=== PATIENT | female | born 1955 | race Caucasian/White ===

== ENCOUNTER → 2017-03-14 | Outpatient (CLI) | payer BC ==
[~2017-03-14] MED LIST: CLARITIN 1010 MG/TAB PO; COLACE 100100 MG/CAP PO; COUMADIN 2MG2 MG/TAB PO; COUMADIN 3MG3 MG/TAB PO; FLEXERIL 1010 MG/TAB PO; FOLIC ACID 40400 MCG PO; IRON325 MG PO; LORTAB 5/500 501 TAB PO; NORCO 325 MG-7.1 TAB PO; ROXICODONE 55 MG/TAB PO; VITAMIN C500 MG PO; VITAMINC1000TA
== END ==
LOC: MC.RAD 14:32
DX: Z12.31 Encounter for screening mammogram for malignant neoplasm of breast (principal)

== ENCOUNTER 2017-12-02 13:32 | Outpatient (RCR) | payer BC | END 2018-03-02 | disposition home or self-care (01) | LOC: MKS.ESL.PT | DX: H81.13 Benign paroxysmal vertigo, bilateral (principal) ==

== ENCOUNTER → 2018-03-06 | Outpatient (CLI) | payer BC | LOC: COL.RAD 07:17 | DX: R10.11 Right upper quadrant pain (principal) ==

== ENCOUNTER → 2018-03-13 | Outpatient (CLI) | payer BC | LOC: COL.RAD 07:48 | DX: K76.89 Other specified diseases of liver (principal) | CPT/HCPCS: Q9967 ==

== ENCOUNTER → 2018-03-18 | Outpatient (CLI) | payer BC | LOC: MC.RAD 14:20 | DX: Z12.31 Encounter for screening mammogram for malignant neoplasm of breast (principal) ==

== ENCOUNTER → 2018-03-19 | Outpatient (CLI) | payer BC | LOC: COL.RAD 06:55 | DX: R10.11 Right upper quadrant pain (principal) | CPT/HCPCS: A9537 ==

== ENCOUNTER 2018-09-21 19:59 | Emergency (ER) | payer BC ==
[~2018-09-21] VITALS: Ht 162.6 cm; Wt 68.2 kg
[2018-09-21 20:05] VITALS: TEMP 98.4
[2018-09-21 21:12] LABS: COLLECTION METHOD CLEAN CATCH
[2018-09-21 21:16] LABS: BASO % 0.5 % (0.0-2.0); EOS # 0.2 (0.0-0.7); EOS % 2.1 % (0-4.0); GRAN # 5.2 (1.4-6.5); GRAN % 68.1 % (42.2-75.2); HEMATOCRIT 40.8 % (37.0-47.0); HEMOGLOBIN 13.3 g/dl (12.5-16.0); LYMPH # 1.4 (1.2-3.4); LYMPH % 18.1 % (20.0-51.0); MEAN CELL VOLUME 95 fl (80.0-100.0); MEAN CORPUSCULAR HEMOGLOBIN 31 pg (27.0-31.0); MEAN CORPUSCULAR HGB CONC 33 g/dl (33.0-37.0); MEAN PLATELET VOLUME 11.7 fl (7.4-10.4); MONO # 0.8 (0.1-0.6); MONO % 10.8 % (1.7-9.3); PLATELET COUNT 161 K/mm3 (130-400); RED BLOOD COUNT 4.29 M/mm3 (4.10-5.30); REDCELL DISTRIBUTION WIDTH-CV 12.6 % (11.5-14.5)
[2018-09-21 21:17] LABS: PH 7 (5-8); SQUAMOUS EPITHELIAL 0-2 /hpf; URINE APPEARANCE Clear; URINE BACTERIA None Seen /hpf; URINE BILIRUBIN Negative (NEGATIVE); URINE BLOOD Negative (NEGATIVE); URINE COLOR Colorless; URINE GLUCOSE Negative (NEGATIVE); URINE KETONE Negative (NEGATIVE); URINE LEUKOCYTE ESTERASE Negative (NEGATIVE); URINE NITRATE Negative (NEGATIVE); URINE PROTEIN(semi-quant) Negative (NEGATIVE); URINE RBC 0-2 /hpf; URINE UROBILINOGEN Negative (NEGATIVE)
[2018-09-21 21:26] LABS: ALANINE AMINOTRANSFERASE 12 U/L (9-52); ALBUMIN 3.8 gm/dL (3.5-5.0); ALKALINE PHOSPHATASE 66 U/L (50-136); ANION GAP 6 mmol/L (7-16); AST,SGOT 32 U/L (15-37); BILIRUBIN,TOTAL 0.4 mg/dL (0.0-1.0); BLOOD UREA NITROGEN 14 mg/dL (7-17); CALCIUM 9.1 mg/dL (8.4-10.2); CARBON DIOXIDE 32 mmol/L (22-30); CHLORIDE 101 mmol/L (98-107); CREATININE, serum 0.76 mg/dL (0.52-1.25); GLUCOSE 87 mg/dL (74-106); LIPASE 82 U/L (23-300); POTASSIUM 3.9 mmol/L (3.4-5.0); SODIUM 139 mmol/L (137-145); TOTAL PROTEIN 7.1 gm/dL (6.4-8.2)
[2018-09-21 21:29] LABS: C-REACTIVE PROTEIN < 0.5 mg/dL (0.0-0.9)
[2018-09-22 00:12] VITALS: BP 137/83; PULSE 66
[2018-09-22] MEDS ORDERED: NORCO 325 MG-51 TAB PO (22:45)
== END 2018-09-22 00:12 | disposition home or self-care (01) ==
LOC: COL.ER 19:59
PROVIDERS: Physician Assistant
DX: K59.00 Constipation, unspecified (principal); R16.0 Hepatomegaly, not elsewhere classified; Z90.710 Acquired absence of both cervix and uterus; Z98.890 Other specified postprocedural states; Z88.1 Allergy status to other antibiotic agents
CPT/HCPCS: Q9967

== ENCOUNTER 2018-09-22 21:22 | Emergency (ER) | payer BC ==
[~2018-09-22] VITALS: Ht 162.6 cm; Wt 68.2 kg
[2018-09-22 21:27] VITALS: TEMP 97.7
[2018-09-22 22:37] LABS: BASO % 0.8 % (0.0-2.0); EOS # 0.1 (0.0-0.7); EOS % 1.9 % (0-4.0); GRAN # 3.4 (1.4-6.5); GRAN % 64.8 % (42.2-75.2); HEMATOCRIT 37.9 % (37.0-47.0); HEMOGLOBIN 12.7 g/dl (12.5-16.0); LYMPH % 19.6 % (20.0-51.0); MEAN CELL VOLUME 95 fl (80.0-100.0); MEAN CORPUSCULAR HEMOGLOBIN 32 pg (27.0-31.0); MEAN CORPUSCULAR HGB CONC 34 g/dl (33.0-37.0); MEAN PLATELET VOLUME 11.2 fl (7.4-10.4); MONO # 0.7 (0.1-0.6); MONO % 12.5 % (1.7-9.3); PLATELET COUNT 157 K/mm3 (130-400); RED BLOOD COUNT 4.01 M/mm3 (4.10-5.30); REDCELL DISTRIBUTION WIDTH-CV 12.6 % (11.5-14.5)
[2018-09-22] MEDS ORDERED: NORCO 325 MG-51 TAB PO (22:45)
[2018-09-22 23:10] VITALS: BP 136/81; PULSE 67
== END 2018-09-22 23:10 | disposition home or self-care (01) ==
LOC: COL.ER 21:22
PROVIDERS: Family Medicine
DX: R10.31 Right lower quadrant pain (principal); R10.2 Pelvic and perineal pain; Z90.710 Acquired absence of both cervix and uterus
CPT/HCPCS: J1170; J2550

== ENCOUNTER → 2019-03-25 | Outpatient (CLI) | payer BC ==
[~2019-03-25] MED LIST changes: +NORCO 325 MG-51 TAB PO
== END ==
LOC: MC.RAD 03-19 07:00
DX: Z12.31 Encounter for screening mammogram for malignant neoplasm of breast (principal)

== ENCOUNTER → 2020-04-07 | Outpatient (CLI) | payer BC | LOC: MC.RAD 03-28 13:30 | DX: Z12.31 Encounter for screening mammogram for malignant neoplasm of breast (principal) ==

== ENCOUNTER 2020-09-11 20:18 | Emergency (ER) | payer BC ==
[~2020-09-11] VITALS: Ht 162.6 cm; Wt 68.2 kg
[2020-09-11 20:52] VITALS: TEMP 98.3
[2020-09-12] MEDS ORDERED: FLEXERIL 1010 MG/TAB PO (00:06)
[2020-09-12 00:10] VITALS: BP 123/62; PULSE 65
== END 2020-09-12 00:10 | disposition home or self-care (01) ==
LOC: COL.ER 20:18
DX: S39.012A Strain of muscle, fascia and tendon of lower back, initial encounter (principal); Z90.710 Acquired absence of both cervix and uterus; Z88.1 Allergy status to other antibiotic agents; X50.1XXA Overexertion from prolonged static or awkward postures, initial encounter; Y92.59 Other trade areas as the place of occurrence of the external cause
CPT/HCPCS: J1885

== ENCOUNTER 2020-11-30 04:26 | Emergency (ER) | payer BC ==
[~2020-11-30] VITALS: Ht 162.6 cm; Wt 70.5 kg
[2020-11-30 04:33] VITALS: TEMP 98.1
[2020-11-30 05:17] LABS: COLLECTION METHOD CLEAN CATCH
[2020-11-30 05:20] LABS: EOS # 0.2 (0.0-0.7); EOS % 4.1 % (0-4.0); GRAN # 2.1 (1.4-6.5); HEMATOCRIT 41.1 % (37.0-47.0); HEMOGLOBIN 13.3 g/dl (12.5-16.0); LYMPH # 1.3 (1.2-3.4); LYMPH % 30.5 % (20.0-51.0); MEAN CELL VOLUME 95 fl (80.0-100.0); MEAN CORPUSCULAR HEMOGLOBIN 31 pg (27.0-31.0); MEAN CORPUSCULAR HGB CONC 32 g/dl (33.0-37.0); MEAN PLATELET VOLUME 11.6 fl (7.4-10.4); MONO # 0.5 (0.1-0.6); MONO % 13.2 % (1.7-9.3); PLATELET COUNT 162 K/mm3 (130-400); RED BLOOD COUNT 4.33 M/mm3 (4.10-5.30); REDCELL DISTRIBUTION WIDTH-CV 12.8 % (11.5-14.5)
[2020-11-30 05:23] LABS: PH 6 (5-8); SQUAMOUS EPITHELIAL None Seen /hpf; URINE APPEARANCE Clear; URINE BACTERIA None Seen /hpf; URINE BILIRUBIN Negative (NEGATIVE); URINE BLOOD Negative (NEGATIVE); URINE COLOR Straw; URINE GLUCOSE Negative (NEGATIVE); URINE KETONE Negative (NEGATIVE); URINE LEUKOCYTE ESTERASE Negative (NEGATIVE); URINE NITRATE Negative (NEGATIVE); URINE PROTEIN(semi-quant) Negative (NEGATIVE); URINE RBC 0-2 /hpf; URINE UROBILINOGEN Negative (NEGATIVE)
[2020-11-30 05:30] LABS: ALBUMIN 3.8 gm/dL (3.5-5.0); BILIRUBIN,TOTAL 0.3 mg/dL (0.0-1.0); CALCIUM 8.9 mg/dL (8.4-10.2); CREATININE, serum 0.64 (0.52-1.25); POTASSIUM 4.1 mmol/L (3.4-5.0); TOTAL PROTEIN 7.2 gm/dL (6.4-8.2)
[2020-11-30] MEDS ORDERED: ROBAXIN 75750 MG/TAB PO (06:13)
[2020-11-30 06:15] VITALS: BP 127/76; PULSE 58
== END 2020-11-30 06:15 | disposition home or self-care (01) ==
LOC: COL.ER 04:26
PROVIDERS: Emergency Medicine
DX: S39.012A Strain of muscle, fascia and tendon of lower back, initial encounter (principal); D72.819 Decreased white blood cell count, unspecified; Z86.718 Personal history of other venous thrombosis and embolism; Z88.1 Allergy status to other antibiotic agents
CPT/HCPCS: J1885

== ENCOUNTER → 2021-04-10 | Outpatient (CLI) | payer BC ==
[~2021-04-10] MED LIST changes: +ROBAXIN 75750 MG/TAB PO
== END ==
LOC: MC.RAD 07:42
DX: Z12.31 Encounter for screening mammogram for malignant neoplasm of breast (principal)

== ENCOUNTER → 2021-04-12 | Outpatient (CLI) | payer BC | LOC: MC.RAD 14:57 | DX: N64.89 Other specified disorders of breast (principal) ==

== ENCOUNTER 2021-10-19 15:29 | Emergency (ER) | payer OTHER ==
[~2021-10-19] VITALS: Ht 162.6 cm; Wt 68.2 kg
[2021-10-19 15:52] VITALS: TEMP 98.8
[2021-10-19] MEDS ORDERED: NORCO 325 MG-51 TAB PO (17:48)
[2021-10-19] MEDS ORDERED: MEDROL 4MG DOSPA4 MG PO (17:48)
[2021-10-19 17:50] VITALS: BP 137/78; PULSE 71
== END 2021-10-19 17:52 | disposition home or self-care (01) ==
LOC: COL.ER 15:29
DX: M54.12 Radiculopathy, cervical region (principal)

== ENCOUNTER → 2021-11-02 | Outpatient (CLI) | payer OTHER ==
[~2021-11-02] MED LIST changes: +MEDROL 4MG DOSPA4 MG PO
== END ==
LOC: COL.RAD 13:35
DX: M47.22 Other spondylosis with radiculopathy, cervical region (principal)

== ENCOUNTER 2021-12-17 23:17 | Emergency (ER) | payer OTHER ==
[~2021-12-17] VITALS: Ht 162.6 cm; Wt 68.2 kg
[2021-12-17 23:21] VITALS: TEMP 98.2
[2021-12-17 23:41] LABS: BASO # 0.1 K/mm3 (0.0-0.2); EOS # 0.2 K/mm3 (0.0-0.7); EOS % 3.7 % (0.0-4.0); GRAN # 2.5 K/mm3 (1.4-6.5); GRAN % 47.7 % (42.2-75.2); HEMATOCRIT 39.2 % (37.0-47.0); HEMOGLOBIN 13.4 g/dl (12.5-16.0); LYMPH # 1.8 K/mm3 (1.2-3.4); LYMPH % 34.1 % (20.0-51.0); MEAN CELL VOLUME 92 fl (80.0-100.0); MEAN CORPUSCULAR HEMOGLOBIN 32 pg (27-31); MEAN CORPUSCULAR HGB CONC 34 g/dl (33.0-37.0); MEAN PLATELET VOLUME 11.2 fl (7.4-10.4); MONO # 0.7 K/mm3 (0.1-0.6); MONO % 13.3 % (1.7-9.3); PLATELET COUNT 205 K/mm3 (130-400); RED BLOOD COUNT 4.25 M/mm3 (4.10-5.30); REDCELL DISTRIBUTION WIDTH-CV 12.6 % (11.5-14.5)
[2021-12-17 23:56] LABS: ALANINE AMINOTRANSFERASE 7 U/L (0-55); ALBUMIN 3.9 gm/dL (3.4-4.8); ALKALINE PHOSPHATASE 59 U/L (40-150); ANION GAP 10 mmol/L (7-16); AST,SGOT 13 U/L (5-34); BILIRUBIN,TOTAL 0.4 mg/dL (0.2-1.2); BLOOD UREA NITROGEN 12 mg/dL (10-20); CALCIUM 8.7 mg/dL (8.4-10.2); CARBON DIOXIDE 25 mmol/L (23-31); CHLORIDE 106 mmol/L (98-107); CREATININE, serum 0.75 mg/dL (0.57-1.11); GLUCOSE 108 mg/dL (70-99); POTASSIUM 3.6 mmol/L (3.5-4.5); SODIUM 141 mmol/L (136-145); TOTAL PROTEIN 6.7 gm/dL (6.2-8.1)
[2021-12-18 00:02] LABS: TROPONIN-I < 0.010 ng/mL (0.00-0.033)
[2021-12-18 01:41] VITALS: BP 124/76; PULSE 62
== END 2021-12-18 01:41 | disposition home or self-care (01) ==
LOC: COL.ER 23:17
PROVIDERS: Emergency Medicine
DX: I10 Essential (primary) hypertension (principal)

== ENCOUNTER → 2022-04-11 | Outpatient (CLI) | payer OTHER | LOC: MC.RAD 09:08 | DX: Z12.31 Encounter for screening mammogram for malignant neoplasm of breast (principal) ==

== ENCOUNTER → 2024-05-18 | Outpatient (CLI) | payer MEDICARE, BC | LOC: MC.RAD 07:30 | DX: Z12.31 Encounter for screening mammogram for malignant neoplasm of breast (principal) ==